=== PATIENT | female | born 1945 | race Caucasian/White ===

== ENCOUNTER 2018-02-09 07:59 | Inpatient (IN) | payer OTHER ==
[~2018-02-09] VITALS: Ht 167.6 cm; Wt 74.8 kg
[~2018-02-09 07:59] MED LIST: ASPIR 8181 M1 PO; BACTRIM DS TAB1 EAC1 PO; COREG6.25 MG PO; LEVEMIR; LEVEMIR FL100 UNIT/2 SQ; MAG6464 MG PO; MYFORTIC180 MG PO; NOVOLIN N100 UNIT/1 SQ; NOVOLOG100 UNIT/1 SUBQ; PREDNISONE 5 MG5 MG PO; PROGRAF 1 MG1 MG PO; PROTONIX40 M1 PO; VALCYTE450 MG PO; VITAMIN D2000 UNI1 PO; ZOLOFT50 MG PO
[2018-02-09 08:00] VITALS: BP 104/41
[2018-02-09] MEDS ORDERED: TRAMADOL 50 MG50 MG PO (08:28)
[2018-02-09] MEDS ORDERED: NAMENDA 5 MG TAB5 M1 PO (08:28)
[2018-02-09] MEDS ORDERED: TACROLIMUS1 MG PO (11:48)
[2018-02-09 12:00] LABS: ABSOLUTE NEUTROPHILS 12.3 thou/uL (1.4-8.2); BASOPHILS 0.5 % (0.0-2.0); EOSINOPHILS 0.2 % (0.0-3.0); HEMOGLOBIN 9.6 gm/dL (12.0-15.0); LYMPHOCYTES 1.8 % (24.0-44.0); MCH 25.6 pg (26.0-34.0); MCHC 33.1 g/dL (28.0-37.0); MCV 77.3 fL (80.0-100.0); MONOCYTES 6.8 % (1.0-8.0); PLATELET COUNT 199 thou/uL (150-400); POLYS 90.7 % (36.0-66.0); RBC 3.75 mil/uL (4.20-5.00); RDW 18.1 % (10.5-14.5); WBC 13.6 thou/uL (4.0-11.0)
[2018-02-09 12:03] LABS: CALCIUM 10.2 mg/dL (8.5-10.1); CREATININE 2.1 mg/dL (0.6-1.0); POTASSIUM 4.4 mmol/L (3.5-5.1)
[2018-02-09 12:08] LABS: URINE BILIRUBIN NEGATIVE (Negative); URINE BLOOD 2+ (Negative); URINE CLARITY SL CLOUDY; URINE COLOR YELLOW; URINE GLUCOSE-RANDOM* 1+ (Negative); URINE KETONES TRACE (Negative); URINE NITRITE-REFLEX NEGATIVE (Negative); URINE PROTEIN (DIPSTICK) 1+ (Negative); URINE SPECIFIC GRAVITY 1.025 (1.005-1.035); URINE UROBILINOGEN 0.2 E.U./dl (0.2-1.0)
[2018-02-09 12:15] LABS: URINE LEUKOCYTES-REFLEX 2+ (Negative)
[2018-02-09 12:22] VITALS: BP 112/49
[2018-02-09 12:23] LABS: BACTERIA-REFLEX >30 Many /HPF (None Seen); CASTS None Seen /LPF (None Seen); CRYSTALS None Seen /LPF (None Seen); SQUAMOUS 0-3 Few /LPF (0-3); URINE RBC 0-2 Rare /HPF (0-2); URINE WBC-REFLEX >25 Many /HPF (0-5)
[2018-02-09 14:37] VITALS: BP 147/45
[2018-02-09 15:38] LABS: TSH 1.977 uIU/mL (0.358-3.740)
[2018-02-09 16:45] VITALS: BP 122/43
[2018-02-09 19:07] VITALS: BP 141/53
[2018-02-10 05:11] VITALS: BP 175/74
[2018-02-10 06:27] LABS: HEMOGLOBIN 8.2 gm/dL (12.0-15.0); MCH 25.5 pg (26.0-34.0); MCHC 32.9 g/dL (28.0-37.0); MCV 77.6 fL (80.0-100.0); RBC 3.22 mil/uL (4.20-5.00); RDW 17.9 % (10.5-14.5); WBC 10.5 thou/uL (4.0-11.0)
[2018-02-10 06:41] LABS: ALBUMIN 2.2 g/dL (3.4-5.0); CALCIUM 9.5 mg/dL (8.5-10.1); CREATININE 1.7 mg/dL (0.6-1.0); PHOSPHORUS 2.8 mg/dL (2.5-4.9); POTASSIUM 3.6 mmol/L (3.5-5.1)
[2018-02-10 07:30] VITALS: BP 123/40
[2018-02-10 16:12] VITALS: BP 105/48
[2018-02-11 00:23] VITALS: BP 133/53
[2018-02-11 07:10] VITALS: BP 123/45
[2018-02-11 07:24] LABS: ABSOLUTE NEUTROPHILS 6.6 thou/uL (1.4-8.2); BASOPHILS 0.3 % (0.0-2.0); HEMATOCRIT 25.6 % (37.0-47.0); HEMOGLOBIN 8.4 gm/dL (12.0-15.0); LYMPHOCYTES 4.3 % (24.0-44.0); MCH 25.6 pg (26.0-34.0); MCHC 32.9 g/dL (28.0-37.0); MCV 77.9 fL (80.0-100.0); MONOCYTES 9.3 % (1.0-8.0); PLATELET COUNT 184 thou/uL (150-400); POLYS 83.1 % (36.0-66.0); RBC 3.29 mil/uL (4.20-5.00); RDW 18.1 % (10.5-14.5); WBC 7.9 thou/uL (4.0-11.0)
[2018-02-11 07:50] LABS: CALCIUM 9.7 mg/dL (8.5-10.1); POTASSIUM 3.6 mmol/L (3.5-5.1)
[2018-02-11 08:52] LABS: ANISOCYTOSIS 1+; OVALOCYTES OCCASIONAL; POIKILOCYTOSIS SLIGHT
[2018-02-11 08:53] LABS: HYPOCHROMASIA SLIGHT; TEARDROPS OCCASIONAL
[2018-02-11 19:20] VITALS: BP 130/49
[2018-02-12 07:15] VITALS: BP 147/57
[2018-02-12 07:17] LABS: ALBUMIN 2.1 g/dL (3.4-5.0); CALCIUM 9.4 mg/dL (8.5-10.1); CREATININE 1.7 mg/dL (0.6-1.0); PHOSPHORUS 3.1 mg/dL (2.5-4.9); POTASSIUM 3.8 mmol/L (3.5-5.1)
[2018-02-12 19:30] VITALS: BP 136/51
[2018-02-13 08:33] VITALS: BP 187/56
[2018-02-13] MEDS ORDERED: CEFUROXIME250 MG PO (08:34)
[2018-02-13] MEDS ORDERED: TRAMADOL 50 MG50 MG PO (08:34)
[2018-02-13] MEDS ORDERED: NOVOLOG100 UNIT/1 SUBQ (08:35)
[2018-02-13 11:08] LABS: KAPPA FREE LIGHT CHAINS 45.8 mg/L (3.3-19.4); KAPPA/LAMBDA RATIO 1.43 (0.26-1.65)
[2018-02-13 12:55] VITALS: BP 187/56
[2018-02-13 17:10] LABS: GLOBULIN TOTAL 3.2 g/dL (2.2-3.9); M-SPIKE Not Observed g/dL (Not Observed)
== END 2018-02-13 18:32 | DRG 542 ==
LOC: ER 07:59 → EROBS 11:46 → 4E 11:46 → SICU 11:46 → 4E 14:45 → SICU 02-10 19:17
PROVIDERS: Emergency Medicine; Hospitalist
DX: M48.48XA Fatigue fracture of vertebra, sacral and sacrococcygeal region, initial encounter for fracture (principal); E43 Unspecified severe protein-calorie malnutrition; N18.6 End stage renal disease; N17.9 Acute kidney failure, unspecified; N39.0 Urinary tract infection, site not specified; I12.0 Hypertensive chronic kidney disease with stage 5 chronic kidney disease or end stage renal disease; Z94.0 Kidney transplant status; S32.401A Unspecified fracture of right acetabulum, initial encounter for closed fracture; K21.9 Gastro-esophageal reflux disease without esophagitis; S32.501A Unspecified fracture of right pubis, initial encounter for closed fracture; S70.01XA Contusion of right hip, initial encounter; S09.90XA Unspecified injury of head, initial encounter; S40.011A Contusion of right shoulder, initial encounter; Z60.2 Problems related to living alone; E53.8 Deficiency of other specified B group vitamins; E78.5 Hyperlipidemia, unspecified; D89.2 Hypergammaglobulinemia, unspecified; E11.22 Type 2 diabetes mellitus with diabetic chronic kidney disease; Z85.51 Personal history of malignant neoplasm of bladder; Z88.8 Allergy status to other drugs, medicaments and biological substances; Z88.6 Allergy status to analgesic agent; Z91.041 Radiographic dye allergy status; Z87.891 Personal history of nicotine dependence; Y93.89 Activity, other specified; Y92.89 Other specified places as the place of occurrence of the external cause; Y99.8 Other external cause status; Z79.82 Long term (current) use of aspirin; Z79.899 Other long term (current) drug therapy; Z79.52 Long term (current) use of systemic steroids; Z68.26 Body mass index [BMI] 26.0-26.9, adult; W01.0XXA Fall on same level from slipping, tripping and stumbling without subsequent striking against object, initial encounter
CPT/HCPCS: 10084; 15002

== ENCOUNTER 2018-12-06 20:00 | Emergency (ER) | payer OTHER ==
[~2018-12-06] VITALS: Ht 162.6 cm; Wt 74.8 kg
[~2018-12-06 20:00] MED LIST changes: +CEFUROXIME250 MG PO; +NAMENDA 5 MG TAB5 M1 PO; +TACROLIMUS1 MG PO; +TRAMADOL 50 MG50 MG PO
[2018-12-06] MEDS ORDERED: NORCO 5-325 TA1 EAC1 PO (21:29)
[2018-12-06 21:51] VITALS: BP 131/49
== END 2018-12-06 21:58 | disposition home or self-care (01) ==
LOC: ER 20:00
DX: S09.90XA Unspecified injury of head, initial encounter (principal); M25.552 Pain in left hip; M25.512 Pain in left shoulder; I12.9 Hypertensive chronic kidney disease with stage 1 through stage 4 chronic kidney disease, or unspecified chronic kidney disease; E11.22 Type 2 diabetes mellitus with diabetic chronic kidney disease; N18.9 Chronic kidney disease, unspecified; E78.5 Hyperlipidemia, unspecified; Z94.0 Kidney transplant status; Z86.2 Personal history of diseases of the blood and blood-forming organs and certain disorders involving the immune mechanism; Z85.51 Personal history of malignant neoplasm of bladder; Z91.048 Other nonmedicinal substance allergy status; Z79.4 Long term (current) use of insulin; Z88.6 Allergy status to analgesic agent; Z88.8 Allergy status to other drugs, medicaments and biological substances; Z87.891 Personal history of nicotine dependence; W18.39XA Other fall on same level, initial encounter; Y93.89 Activity, other specified; Y92.89 Other specified places as the place of occurrence of the external cause; Y99.8 Other external cause status

== ENCOUNTER 2020-06-10 12:31 | Emergency (ER) | payer OTHER ==
[~2020-06-10] VITALS: Ht 162.6 cm; Wt 69.8 kg
[~2020-06-10 12:31] MED LIST changes: +NORCO 5-325 TA1 EAC1 PO
[2020-06-10 13:21] LABS: CALCIUM 10.3 mg/dL (8.5-10.1); CREATININE 1.7 mg/dL (0.6-1.0); POTASSIUM 5.2 mmol/L (3.5-5.1)
[2020-06-10 13:26] LABS: TOTAL BILIRUBIN 0.6 mg/dL (0.2-1.0); TOTAL PROTEIN 7.3 g/dL (6.4-8.2)
[2020-06-10 13:36] LABS: URINE BILIRUBIN NEGATIVE (Negative); URINE BLOOD NEGATIVE (Negative); URINE CLARITY CLEAR; URINE COLOR YELLOW; URINE GLUCOSE-RANDOM* NEGATIVE (Negative); URINE KETONES NEGATIVE (Negative); URINE LEUKOCYTES-REFLEX NEGATIVE (Negative); URINE NITRITE-REFLEX NEGATIVE (Negative); URINE PROTEIN (DIPSTICK) NEGATIVE (Negative); URINE UROBILINOGEN 0.2 E.U./dl (0.2-1.0)
[2020-06-10 14:17] LABS: HEMATOCRIT 35.4 % (37.0-47.0); HEMOGLOBIN 11.6 gm/dL (12.0-15.0); MCH 26.6 pg (26.0-34.0); MCHC 32.7 g/dL (28.0-37.0); MCV 81.3 fL (80.0-100.0); RBC 4.35 mil/uL (4.20-5.00); RDW 15.8 % (10.5-14.5); WBC 10.8 thou/uL (4.0-11.0)
[2020-06-10 17:51] VITALS: BP 134/47
== END 2020-06-10 17:57 | disposition home or self-care (01) ==
LOC: ER 12:31
PROVIDERS: Student in an Organized Health Care Education/Training Program
DX: I95.1 Orthostatic hypotension (principal); R42 Dizziness and giddiness; I12.9 Hypertensive chronic kidney disease with stage 1 through stage 4 chronic kidney disease, or unspecified chronic kidney disease; E11.22 Type 2 diabetes mellitus with diabetic chronic kidney disease; N18.9 Chronic kidney disease, unspecified; E78.5 Hyperlipidemia, unspecified; Z87.891 Personal history of nicotine dependence; Z88.8 Allergy status to other drugs, medicaments and biological substances; Z88.6 Allergy status to analgesic agent; Z88.5 Allergy status to narcotic agent; Z79.899 Other long term (current) drug therapy; Z79.82 Long term (current) use of aspirin; Z94.0 Kidney transplant status

== ENCOUNTER 2020-06-15 19:01 | Inpatient (IN) | payer OTHER ==
[~2020-06-15] VITALS: Ht 162.6 cm; Wt 69.9 kg
[~2020-06-15 19:01] MED LIST changes: +ZOLOFT100 MG PO; -ZOLOFT50 MG PO
[2020-06-15 19:02] VITALS: BP 168/72
[2020-06-15 19:57] LABS: ABSOLUTE NEUTROPHILS 10.1 thou/uL (1.4-8.2); BASOPHILS 0.5 % (0.0-2.0); EOSINOPHILS 1.1 % (0.0-3.0); HEMATOCRIT 34.5 % (37.0-47.0); HEMOGLOBIN 11.6 gm/dL (12.0-15.0); LYMPHOCYTES 5.5 % (24.0-44.0); MCH 26.9 pg (26.0-34.0); MCHC 33.7 g/dL (28.0-37.0); MCV 79.9 fL (80.0-100.0); MONOCYTES 5.6 % (1.0-8.0); PLATELET COUNT 226 thou/uL (150-400); POLYS 87.3 % (36.0-66.0); RBC 4.31 mil/uL (4.20-5.00); RDW 16.1 % (10.5-14.5); WBC 11.6 thou/uL (4.0-11.0)
[2020-06-15 20:05] LABS: ANION GAP 6 mmol/L (7-16); BUN 18 mg/dL (7-18); CALCIUM 10.4 mg/dL (8.5-10.1); CHLORIDE 106 mmol/L (98-107); CO2 29 mmol/L (21-32); CREATININE 1.7 mg/dL (0.6-1.0); GLUCOSE 211 mg/dL (74-106); SODIUM 141 mmol/L (136-145)
[2020-06-15 20:15] LABS: ALBUMIN 3.7 g/dL (3.4-5.0); LIPASE 102 U/L (73-393); SGOT 37 U/L (15-37); SGPT 29 U/L (14-59); TOTAL BILIRUBIN 0.8 mg/dL (0.2-1.0); TOTAL PROTEIN 7.3 g/dL (6.4-8.2); TROPONIN-I <0.06 ng/mL (<0.06)
[2020-06-15] MEDS ORDERED: ZOLOFT 50 MG TA50 MG PO (21:09)
[2020-06-15] MEDS ORDERED: TAMSULOSIN HCL0.4 MG PO (21:10)
[2020-06-15] MEDS ORDERED: LANTUS100 UNIT/M SUBQ (21:11)
[2020-06-16 05:49] LABS: HEMATOCRIT 34.6 % (37.0-47.0); HEMOGLOBIN 11.2 gm/dL (12.0-15.0); MCH 26.4 pg (26.0-34.0); MCHC 32.5 g/dL (28.0-37.0); MCV 81.5 fL (80.0-100.0); RBC 4.25 mil/uL (4.20-5.00); RDW 15.8 % (10.5-14.5); WBC 10.7 thou/uL (4.0-11.0)
[2020-06-16 06:25] LABS: ANION GAP 9 mmol/L (7-16); BUN 14 mg/dL (7-18); CALCIUM 9.2 mg/dL (8.5-10.1); CHLORIDE 104 mmol/L (98-107); CHOLESTEROL 236 mg/dL (<200); CO2 27 mmol/L (21-32); CREATININE 1.4 mg/dL (0.6-1.0); GLUCOSE 196 mg/dL (74-106); HDL CHOLESTEROL 58 mg/dL (>40); LDL CHOLESTEROL 154 mg/dL (<100); POTASSIUM 3.9 mmol/L (3.5-5.1); SODIUM 140 mmol/L (136-145); TC:HDL 4.1 Ratio (Not establshd); TRIGLYCERIDE 122 mg/dL (<150); VLDL 24 mg/dL (<40)
[2020-06-16 06:27] LABS: SERUM ASSESSMENT Clear
--- NOTE | 2020-06-16 07:10 | EKG ---
[address] [place] [address] ELECTROCARDIOGRAM REPORT Name: JOVANNY ACOSTA Room #: 170-2 ADM IN M.R.#: [id number] Admission: 06/15/20 Attend Phys: Malik Wu MD Discharge: Date of : 47 Report #: [id number] [facility] ED Test Date: 2020-06-15 Test Time: 20:35:02 Pat Name: JOVANNY ACOSTA Department: Room: 170 Gender: F Gas Prover: jackson : 1945 Requested By: Deo Goldman Order Number: [id number] MD: Qasim Mina Measurements Intervals [place] Rate: 59 P: 0 VT: 54 QRS: 25 QRSD: 108 T: QT: 439 QTc: 435 Interpretive Statements Sinus rhythm Short VT interval LVH with secondary repolarization abnormality ST depr, consider ischemia, inferior leads Artifact in lead(s) I,III,aVR,aVL,aVF,V1,V2,V3,V4,V5,V6 No previous ECG available for comparison Electronically Signed On 06-16-2020 7:10:15 CDT by Qasim Mina [email or web address] <ELECTRONICALLY SIGNED> By: Qasim Mina MD, [facility] 06/16/20 0710 34 34 Qasim Mina MD, [facility] /EPI
[2020-06-16 07:56] VITALS: BP 144/48
--- NOTE | 2020-06-16 09:05 | NUR ---
UPDATED DR HUMPHREYS UPDATED ON FAMILY CONCERNS AND STATES THAT HE WILL SPEAK WITH FAMILY
[2020-06-16 09:38] VITALS: BP 142/51
[2020-06-16 17:06] VITALS: BP 151/63
--- NOTE | 2020-06-16 18:32 | NUR ---
ASSUMED PT CARE AT 1700 FROM PACU. PT HAS LAP COLE TODAY. PT IS ALERT & ORIENTED X4. PT HAS IV SITE ON R FA 20 GAUGE SALINE LOCKED. PT HAD 4 LAP SITE WITH DERMABOND. PT HAS ICE PACK. PT IS ACCUCHECK ACHS. PT STATED THAT SHE HAD KIDNEY TRANSPLANT AND HAS L AV SHUNT WITH LIMB ALERT. PT STATED THAT GRANDDAUGHTER WILL BRING PT DENTURES TONIGHT. PT ON THE BED EATING, BED ON THE LOWEST POSITION, SIDE RAILS UP, CALL LIGHT WITHIN REACH. WILL CONTINUE TO MONITOR. FOLLOW POC.
[2020-06-16 20:41] VITALS: BP 147/60
[2020-06-16] MEDS ORDERED: METRONIDAZOLE500 M4 (21:50)
[2020-06-16] MEDS ORDERED: FUROSEMIDE 20 M20 MG PO (21:50)
[2020-06-16 21:53] VITALS: BP 191/153
[2020-06-16 22:06] VITALS: BP 144/60
--- NOTE | 2020-06-16 23:02 | NUR ---
ASSUMED CARE OF PT AT 1900. PT IS A/O X3 WITH SOME FORGETFULNESS. AWARE OF SELF, PLACE, BUT WAS NOT SURE OF WHICH PROCEDURE SHE WAS HERE FOR. REFUSED TO WEAR SCD'S STATING SHE WASN'T A CHILD AND WASN'T GOING TO WEAR THEM. THIS NURSE AND DAY SHIFT NURSE TOGETHER EXPLAINED THE IMPORTANCE AND EDUCATED PT ON WHY SHE WAS PLACED ON FALL PRECAUTIONS FOR HER SAFETY. PT CONTINUED TO REFUSE. HAS BEEN IMPULSIVE WITH GETTING UP TO USE THE BR. SHE IS ON ROOM AIR. BP ELEVATED. SEATER ASSEMBLER NOTIFIED. NO NEW ORDERS GIVEN. PT FAMILY INSISTED THAT THEY SPEAK WITH THE SUPERVISER OVER THE MATTER. ASSESSMENT CLINICIAN OF UNIT, [facility] HOUSE SUPERVISER, AND SEATER ASSEMBLER SPOKE WITH FAMILY CONCERNING BP AND MEDICATION CHANGES THEY WERE CONCERNED WITH. CHANGES MADE. PRN BP MEDICATION ADDED TO MAR PER DR HUMPHREYS AND SEATER ASSEMBLER. AT THIS TIME, PT IS LYING IN HER BED AND APPEARS TO BE PLAYING A GAME ON HER TABLET. STATES SHE FELT ANXIETY FROM THE COMMOTION. C/O ABDOMINAL PAIN AND REQUESTED SLEEP MEDICATION. PRN PAIN AND SLEEP MEDICATION GIVEN DIRECTED. FALL PRECAUTIONS IMPLEMENTED. CALL LIGHT IS WITHIN REACH. WILL CONTINUE TO MONITOR.
[2020-06-17 00:06] LABS: GLYCOHEMOGLOBIN (HGB A1C) 8.8 % (4.8-5.6)
[2020-06-17 07:52] VITALS: BP 169/56
[2020-06-17 11:00] VITALS: BP 152/86
[2020-06-17 11:08] LABS: CALCIUM 9.1 mg/dL (8.5-10.1); CREATININE 1.7 mg/dL (0.6-1.0); PHOSPHORUS 3.3 mg/dL (2.5-4.9); POTASSIUM 4.4 mmol/L (3.5-5.1)
--- NOTE | 2020-06-17 14:17 | NUR ---
ASSESSMENT: CM REVIEWED CHART AND MET WITH PATIENT AT THE BEDSIDE. PT REPORTS LIVING IN A HOUSE WITH HER GRANDDAUGHTERS COUSIN. PT REPORTS THAT SHE HAS 2 STEPS TO ENTER WITH NO HANDRAIL. PT REPORTS ONCE INSIDE SHE HAS ABOUT 7 STEPS WITH HANDRAILS TO HER BEDROOM. PT REPORTS HAVING A CANE AND A WALKER AT HOME TO ASSIST WITH AMBULATION. PT REPORTS HAVING A GRAB BAR AND SHOWER CHAIR. PT STATES SHE HAD HH YEARS AGO BUT UNSURE THE AGENCY AND DOES NOT FEEL SHE NEEDS HH. PT DENIES BEING TO A SNF IN THE PAST. PT STATES SHE IS NORMALLY VERY INDEPENDENT. PT IS S/P LAP COLE AND HER DIET IS BEING ADVANCED. PER ATTENDING PT MAY BE STABLE FOR DISCHARGE SOON IF ABLE TO TOLERATE DIET. PT DOES NOT ANTICIPATE HAVING ANY NEEDS AT DISCHARGE. PLEASE CONTACT HER SON KASSANDRA AT DISCHARGE AT [phone] AND HIS DAUGHTER (PTS GRANDDAUGHTER) SHEILA WILL PICK HER UP AT D/C [phone].
[2020-06-17 15:47] VITALS: BP 159/64
--- NOTE | 2020-06-17 16:00 | NUR ---
Received awake on bed. Due medications given as prescribed, able to swallow meds w/o difficulty. On room air. Vital signs stable. On MS, not on telemetry; no complains and signs of chest pain, crushing sensation and heaviness. On regular diet- tolerating well, no nausea, and no abdominal pain noted- diet changed to carb controlled diet. On blood sugar monitoring, taken and recorded accordingly- with sliding scale insulin ordered- given as prescribed. With NS at 125cc/hr, infusing at R hand. Continent of bowel and bladder, with urgency noted- frequent toileting offered; falls bundle in place. S/P lap padmini 06/16- abdominal post op site- with dermabond C/D/I; no signs of bleeding and drainage noted. Able to ambulate to the toilet using cane, gait belt. Complained of pain, due PRN pain meds given as prescribed. With elevated BP noted this AM, PRN BP meds given as prescribed- rechecked- WNL. To continue monitoring patient.
[2020-06-17 20:40] VITALS: BP 139/55
--- NOTE | 2020-06-18 04:20 | NUR ---
ASSUMED PT CARE AT 1900.PT C/O PAIN TO HER ABD,MANAGED WITH MED.4 LAP SITES NOTED TO HER ABD.DRY AND INTACT.UP WITH SBA TO THE BR.BP THIS SHIFT STABLE NO PRN REQUIRED.NO BM SO FAR.L ARM FISTULA NOTED,LIMB ALERT BRACELET IN PLACE.PT PROGRESSING TOWARDS DC GOALS.CALL LIGHT WITHIN REACH.
[2020-06-18 05:00] VITALS: BP 172/72
[2020-06-18 05:38] LABS: ALBUMIN 2.8 g/dL (3.4-5.0); CALCIUM 8.6 mg/dL (8.5-10.1); CREATININE 1.8 mg/dL (0.6-1.0); POTASSIUM 3.6 mmol/L (3.5-5.1); TOTAL BILIRUBIN 0.6 mg/dL (0.2-1.0); TOTAL PROTEIN 5.9 g/dL (6.4-8.2)
[2020-06-18] MEDS ORDERED: TRAMADOL 50 MG50 MG PO (08:57)
[2020-06-18] MEDS ORDERED: MIRALAX17 GM PO (08:58)
[2020-06-18 09:55] VITALS: BP 171/65
[2020-06-18 10:33] LABS: URINE BILIRUBIN NEGATIVE (Negative); URINE BLOOD NEGATIVE (Negative); URINE CLARITY CLEAR; URINE COLOR YELLOW; URINE GLUCOSE-RANDOM* 2+ (Negative); URINE KETONES NEGATIVE (Negative); URINE LEUKOCYTES-REFLEX NEGATIVE (Negative); URINE NITRITE-REFLEX NEGATIVE (Negative); URINE PROTEIN (DIPSTICK) NEGATIVE (Negative); URINE SPECIFIC GRAVITY 1.025 (1.005-1.035)
[2020-06-18 11:36] VITALS: BP 171/65
--- NOTE | 2020-06-18 12:06 | NUR ---
Assumed pt care this am, diet and medications are tolerated well. Blood sugar monitoring done, medicatons given as per emar. Surgical sites, c/d/i, no signs of infection. POC followed with no signs or verbalizations of distress noted. Family at the bedside, dc instructions and prescriptioons given to the pt and family. IV removed, pt is now dc.
--- NOTE | 2020-06-20 18:06 | PATH ---
[facility] [address] [place] [address] PATHOLOGY RPT PROCEDURE Name: JOVANNY MAHMOOD YEN Room #: 439-P DIS IN M.R.#: [id number] Admission: 06/15/20 Date of : 47 Discharge: 06/18/20 Report #: [id number] Path Case #: [id number] [facility] Accession Number: [id number] . 01 Material submitted: . gallbladder - GALLBLADDER . 01 Clinical history: . LAPAROSCOPIC CHOLECYSTECTOMY CHOLECYSTITIS POST OP SAME PRE OP VOMITING, GALLSTONE, KIDNEY STONES . 02 Diagnosis: Gallbladder, cholecystectomy: - Mild chronic cholecystitis. - Cholelithiasis. - Cholesterolosis. (IUV:stave and bolt equalizer; 06/20/2020) MBR 06/20/2020 1636 Local . 02 Electronically signed: . Emely Whitmore MD, Pathologist NPI- [id number] . 01 Gross description: . The specimen is received in formalin, labeled "Jovanny Mahmood", "gallbladder". Received is an intact gallbladder measuring 8.4 x 2.7 x 2.1 cm. The external surface is wrinkled, shiny and pale pace-flores. Opening the gallbladder reveals a flores-brown, spongy, bile stained mucosa with multiple pale yellow raised streaks extending throughout. The gallbladder wall measures 0.1-0.2 cm in thickness. No polypoid adhesions or solid masses are identified. Calculi are present within the gallbladder ranging in size from 0.2 cm to 0.8 cm. Neuropsychiatric Aide sections are submitted in cassette A1.(SNA; 06/17/2020) BRET/HUY 06/17/2020 0918 Local . 02 Pathologist provided ICD-10: K80.10 . 02 CPT . 504288 Specimen Comment: A courtesy copy of this report has been sent to [phone] Specimen Comment: [phone], Specimen Comment: Report sent to ,DR HUMPHREYS / DR PRETTY Performed at: [address] [place] [address] PATHOLOGY RPT PROCEDURE Name: DAVEJOVANNY Room #: 439-P DIS IN M.R.#: [id number] Admission: 06/15/20 Date of : 47 Discharge: 06/18/20 Report #: [id number] Path Case #: [id number] [facility] [place] [address] [facility] [address], [place], [place] [id number] MD Keon Stone MD Phone: [phone] Performed at: [address] [id number] MD Emely Whitmore MD Phone: [phone]
== END 2020-06-18 12:15 | disposition home or self-care (01) | DRG 418 ==
LOC: ER 19:01 → 4S 21:19 → EROBS 21:19 → 4S 06-16 17:02
PROVIDERS: Emergency Medicine; Internal Medicine Nephrology; Nurse Practitioner Family; ADMIT Hospitalist; ATTEND Hospitalist
PROC: 0FT44ZZ Resection of Gallbladder, Percutaneous Endoscopic Approach (ICD-10-PCS; principal; 2020-06-16)
DX: K80.10 Calculus of gallbladder with chronic cholecystitis without obstruction (principal); Z94.0 Kidney transplant status; E11.22 Type 2 diabetes mellitus with diabetic chronic kidney disease; I12.9 Hypertensive chronic kidney disease with stage 1 through stage 4 chronic kidney disease, or unspecified chronic kidney disease; N18.30 Chronic kidney disease, stage 3 unspecified; Z20.822 Contact with and (suspected) exposure to COVID-19; E78.5 Hyperlipidemia, unspecified; F32.9 Major depressive disorder, single episode, unspecified; G43.909 Migraine, unspecified, not intractable, without status migrainosus; K21.9 Gastro-esophageal reflux disease without esophagitis; D64.9 Anemia, unspecified; F03.90 Unspecified dementia, unspecified severity, without behavioral disturbance, psychotic disturbance, mood disturbance, and anxiety; Z79.82 Long term (current) use of aspirin; Z85.51 Personal history of malignant neoplasm of bladder; Z98.49 Cataract extraction status, unspecified eye; Z88.8 Allergy status to other drugs, medicaments and biological substances; Z88.6 Allergy status to analgesic agent; Z91.041 Radiographic dye allergy status; Z87.891 Personal history of nicotine dependence; Z79.899 Other long term (current) drug therapy
CPT/HCPCS: 10195; 50010; 50101; 50411; 50555; 50558; 51474; 51489; 52265; 52266; 53307; 53310; 53312; 54022; 54118; 55245; 56462; 56525; 56526; 58574; 58637; 62110; 62900; 70005